=== PATIENT | female | born 2000 | race American Indian/Alaskan Native ===

== ENCOUNTER → 2020-06-01 | Emergency (ER) | payer OTHER ==
[~2020-06-01] VITALS: Ht 152.4 cm; Wt 63.5 kg
[~2020-06-01] MED LIST: BENADRYL25 MG PO; PSEUDOEPHEDRINE30 MG PO; SEIZURE MEDICATION
--- OUTSIDE RECORDS SUMMARY | ~2020-06-01 | XMS | Encounter Summary ---
Demographics + + + | Address | [address] | | | [place] [address] | + + + | Home Phone | | + + + | Preferred Language | Unknown | + + + | Marital Status | Single | + + + | Advent Affiliation | Unknown | + + + | Race | or | + + + | Ethnic Group | Not or | + + + Author + + + | Author | [facility] | + + + | Organization | [facility] | + + + | Address | Unknown | + + + | Phone | Unavailable | + + + Support + + + + + | Name | Relationship | Address | Phone | + + + + + | Drea Calderon | ECON | [address] | | | | | [place] | | | | | [address] | | + + + + + Care Team Providers + +------+ + | Care Box Press Operator Name | Role | Phone | + +------+ + | Angela Gallegos | PCP | | + +------+ + Encounter Details +--------+ + + + + | Date | Type | Department | Care Team | Description | +--------+ + + + + | 02/23/ | Hospital | Neurophysiology | | | | 2008 | Encounter | EEG at [facility] [address] | | | | | | [address] | | | | | | Pb | | | | | | [facility], | | | | | | 7th floor | | | | | | [place], [place] | | | | | | [address] | | | | | | [phone] | | | +--------+ + + + + Social History + +-------+ +--------+------+ | Tobacco Use | Types | Packs/Day | Years | Date | | | | | Used | | + +-------+ +--------+------+ | Never Assessed | | | | | + +-------+ +--------+------+ + + + | Sex Assigned at | Date Recorded | | | | + + + | Not on file | | + + + documented as of this encounter Miscellaneous Notes Jes - Tima Castillo - 02/23/2009 11:59 PM PDT documented in this encounter Plan of Treatment Not on filedocumented as of this encounter Procedures + +--------+ + + + | Procedure Name | Priori | Date/Time | Associated Diagnosis | Comments | | | ty | | | | + +--------+ + + + | EEG ROUTINE, PEDS | Routin | 02/23/2009 | | Results for this | | | e | 2:53 PM | | procedure are in the | | | | PDT | | results section. | + +--------+ + + + documented in this encounter Results EEG ROUTINE, PEDS (02/23/2009 2:53 PM PDT) + + + | Narrative | Performed At | + + + | Patient Name: Bethany Rodriguez Date of : 2000 Medical | | | Record Number: [id number] Date of Test: 02/23/2009 ROUTINE EEG | | | Introduction: This is a routine electroencephalogram performed on | | | a 9 y.o. with a clinical history of absence seizures. The standard | | | 10-20 system of electrode placement was used with one channel of EKG | | | monitoring. No anticonvulsant medications are listed. | | | Description of the Record: During periods of relaxed wakefulness, | | | there is a reactive posterior dominant rhythm which consists | | | predominantly of 9 Hz activity of moderate amplitude, with lower | | | amplitude faster frequencies present symmetrically in the anterior | | | head regions. During periods of drowsiness, there is decreased eye | | | blinking, decreased muscle artifact, and attenuation of the | | | background rhythm. Increased background amplitude and normal vertex | | | sharp waves characterize transition to stage I sleep. Stage II sleep | | | is characterized by symmetric sleep spindles and K-complexes. Slow | | | wave sleep is not recorded. The waking background is interrupted | | | by bursts of generalized 3-3.5Hz spike-wave discharges lasting 1-3 | | | seconds. Fragments of generalized and focal frontal spikes are also | | | seen. During sleep, bursts of irregularly generalized polyspikes are | | | seen fronto-centrally, distinct from normal sleep transients. | | | Hyperventilation is performed for 3 minutes, and elicits 2 clinical | | | absences lasting 6 and 7 seconds. Photic stimulation produces no | | | photoparoxysmal discharges or other abnormal responses. EKG shows | | | normal sinus rhythm throughout the recording. Impression: This | | | is an abnormal EEG for age recording wakefulness through stage II | | | sleep due to generalized 3-3.5Hz spike wave bursts, frontal spike | | | fragments, and hyperventilation-induced absence seizures. | | | Clinical Correlation: These findings would best support a primary | | | generalized mechanism of onset for this patient's seizures. Colten | | | MD R[facility] Clinical Neurophysiology Place of Service: | | | Outpatient Hospital Date of Service: 02/23/2009 Modifier: 26 | | | Suggested Level of Service: 44433- EEG Awake and Asleep Suggested | | | Diagnosis: 345.00-Epilepsy, Generalized, non-convuls. 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
--- OUTSIDE RECORDS SUMMARY | ~2020-06-01 | XMS | Clinical Summary ---
Demographics + + + | Address | [address] | | | [place] [address] | + + + | Home Phone | | + + + | Preferred Language | Unknown | + + + | Marital Status | Single | + + + | Judaism Affiliation | Unknown | + + + | Race | or | + + + | Ethnic Group | Not or | + + + Author + + + | Author | [facility] REVENUE LOCATIONS | + + + | Organization | NON REVENUE LOCATIONS | + + + | Address | Unknown | + + + | Phone | Unavailable | + + + Support + + + + + | Name | Relationship | Address | Phone | + + + + + | John Sorensen | ECON | [address] | | | | | [place] | | | | | [address] | | + + + + + Care Team Providers + +------+ + | Care Payment Collector Name | Role | Phone | + +------+ + | Hemanth Irving MD | PCP | | + +------+ + Source Comments ELÍAS is fully live on both [facility] and [facility] Allergies No Known Allergies Medications + + + +---------+------+------+-------+ | Medication | Sig | Dispensed | Refills | Star | End | Statu | | | | | | t | Date | s | | | | | | Date | | | + + + +---------+------+------+-------+ | ethosuximide 250 | 1 tab at night for | 60 Cap | 3 | 05/0 | | Activ | | mg Oral Capsule | one week, then 1 tab | | | 3/20 | | e | | | morning and night | | | 12 | | | + + + +---------+------+------+-------+ Active Problems + + + | Problem | Noted Date | + + + | Childhood absence epilepsy | 02/24/2009 | + + + Social History + +-------+ [...] on file | | + + + Last Filed Vital Signs + + + + + | Vital Sign | Reading | Time Taken | Comments | + + + + + | Blood Pressure | 109/61 | 01/03/2012 10:50 AM | | | | | PDT | | + + + + + | Pulse | 69 | 01/03/2012 10:50 AM | | | | | PDT | | + + + + + | Temperature | - | - | | + + + + + | Respiratory Rate | - | - | | + + + + + | Oxygen Saturation | - | - | | + + + + + | Inhaled Oxygen | - | - | | | Concentration | | | | + + + + + | Weight | 47.5 kg (104 lb 11.5 | 01/03/2012 10:50 AM | | | | oz) | PDT | | + + + + + | Height | 145 cm (4' 9.09") | 01/03/2012 10:50 AM | | | | | PDT | | + + + + + | Body Mass Index | 22.59 | 01/03/2012 10:50 AM | | | | | PDT | | + + + + + Plan of Treatment + + +-------+ + | Health Maintenance | Due Date | Last | Comments | | | | Done | | + + +-------+ + | Influenza (Flu) | | | | | vaccination (#1) | 0 | | | + + +-------+ + | Pneumococcal | Aged Out | | No longer eligible based on patient's age | | vaccination | | | to complete this topic | + + +-------+ + Results Not on filefrom Last 3 Months Insurance + +--------+ +--------+ + +--------+ | Payer | Benefi | Subscriber | Effect | Phone | Address | Type | | | t Plan | ID | anthony | | | | | | / | | Dates | | | | | | Group | | | | | | + +--------+ +--------+ + +--------+ | [place] | OHP | [id number] | | [phone] | [address] | [address] | | | PLUS | | [phone] | id | | | OPEN | | esent | | [place], [place] | | | | CARD | | | | [phone] | | + +--------+ +--------+ + +--------+ | FORMERLY [facility] | | [id number] | Effect | | | Agency | | SERVICE | | | anthony | | | | | | HEALTH | | for | | | | | | | | all | | | | | | SERVIC | | dates | | | | | | E | | | | | | + +--------+ +--------+ + +--------+ + +--------+ +--------+ + + | Guarantor Name | Accoun | Relation to | Date | Phone | Billing Address | | | t Type | Patient | of | | | | | | | | | | + +--------+ +--------+ + + | JOHN SORENSEN | Person | Parent | [birth year] | [address] | | | chapo/Richie | | 1975 | [phone] | [place] [address] | | | larissa | | | 0 (Home) | | + +--------+ +--------+ + + | Bethany Rodriguez | Agency | Self | [birth year] | [address] [address] [facility] | | | | | 1999 | [phone] | [place] [address] | | | | | | 0 ([place]) | | + +--------+ +--------+ + +
--- OUTSIDE RECORDS SUMMARY | ~2020-06-01 | XMS | Encounter Summary ---
Demographics + + + | Address | [address] | | | [place] [address] | + + + | Home Phone | | + + + | Preferred Language | Unknown | + + + | Marital Status | Single | + + + | Amish Affiliation | Unknown | + + + | Race | or | + + + | Ethnic Group | Not or | + + + Author + + + | Author | [facility] | + + + | Organization | [facility] | + + + | Address | Unknown | + + + | Phone | Unavailable | + + + Support + + + + + | Name | Relationship | Address | Phone | + + + + + | Drea Calderon | ECON | [address] | | | | | [place] | | | | | [address] | | + + + + + Care Team Providers + +------+ + | Care Maternity Floor Supervisor Name | Role | Phone | + +------+ + | Benji Denny MD | PCP | | + +------+ + Encounter Details +--------+ + + + + | Date | Type | Department | Care Team | Description | +--------+ + + + + | 12/15/ | Document-Sc | Pediatric | Tee Sultana MD | | | 2010 | anned | Neurology at | | | | | | Pb | | | | | | [facility] | | | | | | [address] | | | | | | Pb | | | | | | [facility], | | | | | | 7th floor | | | | | | [place], [place] | | | | | | [address] | | | | | | [phone] | | | +--------+ + + + [...] documented as of this encounter Miscellaneous Notes Scan - Other, Faculty - 12/15/2010 12:00 AM PDT documented in this encou nter Plan of Treatment Not on filedocumented as of this encounter Visit Diagnoses Not on filedocumented in this encounter"
--- OUTSIDE RECORDS SUMMARY | ~2020-06-01 | XMS | Encounter Summary ---
Demographics + + + | Address | [address] | | | [place] [address] | + + + | Home Phone | | + + + | Preferred Language | Unknown | + + + | Marital Status | Single | + + + | Sabianist Affiliation | Unknown | + + + | Race | or | + + + | Ethnic Group | Not or | + + + Author + + + | Author | [facility] | + + + | Organization | [facility] | + + + | Address | Unknown | + + + | Phone | Unavailable | + + + Support + + + + + | Name | Relationship | Address | Phone | + + + + + | Drea Calderon | ECON | [address] | | | | | [place] | | | | | [address] | | + + + + + Care Team Providers + +------+ + | Care Transport Truck Driver Name | Role | Phone | + +------+ + | Hemanth Irving MD | PCP | | + +------+ + Encounter Details +--------+ + + + + | Date | Type | Department | Care Team | Description | +--------+ + + + + | 08/08/ | Ancillary | Registration [id number] | | | | 2005 | Registratio | [address] | | | | | [address] | [address] Mailcode: [address] | | | | | | [place], [place] | | | | | | [address] | | | | | | [phone] | | | +--------+ + + + [...] + + documented as of this encounter Plan of Treatment Not on filedocumented as of this encounter Visit Diagnoses Not on filedocumented in this encounter"
--- OUTSIDE RECORDS SUMMARY | ~2020-06-01 | XMS | Encounter Summary ---
Demographics + + + | Address | [address] | | | [place] [address] | + + + | Home Phone | | + + + | Preferred Language | Unknown | + + + | Marital Status | Single | + + + | Yarsanism Affiliation | Unknown | + + + | Race | or | + + + | Ethnic Group | Not or | + + + Author + + + | Author | [facility] | + + + | Organization | [facility] | + + + | Address | Unknown | + + + | Phone | Unavailable | + + + Support + + + + + | Name | Relationship | Address | Phone | + + + + + | Drea Calderon | ECON | [address] | | | | | [place] | | | | | [address] | | + + + + + Care Team Providers + +------+ + | Care Elevator Constructor Helper Name | Role | Phone | + +------+ + | Hemanth Irving MD | PCP | | + +------+ + Encounter Details +--------+ + + + + | Date | Type | Department | Care Team | Description | +--------+ + + + + | 08/15/ | Ancillary | Registration [id number] | [address], | | | 2005 | Registratio | [facility] [address] | [address] [facility] | | | | n | [address] Mail[address]: [id number] | [address] | | | | | [place], [place] | [place], [place] | | | | | [address] | [address] | | | | | [phone] | [phone] | | | | | | | | +--------+ + + + [...]
--- OUTSIDE RECORDS SUMMARY | ~2020-06-01 | XMS | Encounter Summary ---
Demographics + + + | Address | [address] | | | [place] [address] | + + + | Home Phone | | + + + | Preferred Language | Unknown | + + + | Marital Status | Single | + + + | Protestant Affiliation | Unknown | + + + | Race | or | + + + | Ethnic Group | Not or | + + + Author + + + | Author | [facility] | + + + | Organization | [facility] | + + + | Address | Unknown | + + + | Phone | Unavailable | + + + Support + + + + + | Name | Relationship | Address | Phone | + + + + + | Drae Calderon | ECON | [address] | | | | | [place] | | | | | [address] | | + + + + + Care Team Providers + +------+ + | Care Power Truck Driver Name | Role | Phone | + +------+ + | Angela Gallegos | PCP | | + +------+ + Reason for Visit + + + | Reason | Comments | + + + | New patient | | | consultation | | + + + Consultation (Routine) +--------+--------+ + + + + | Status | Reason | Specialty | Diagnoses / | Referred By | Referred To | | | | | Procedures | Contact | Contact | +--------+--------+ + + + + | Closed | | Pediatric | Diagnoses | Non-[facility] | Ped | | | | Neurology | Generalized | Epic Dept | Neurology Dch | | | | | | | [address] | | | | | nonconvulsiv | | [address] | | | | | e epilepsy | | [place] | | | | | without | | Children's | | | | | mention of | | [facility] | | | | | intractable | | floor | | | | | epilepsy | | [place], [place] | | | | | | | [address] | | | | | | | Phone: | | | | | | | [phone] | | | | | | | Fax: | | | | | | | [phone] | +--------+--------+ + + + + Encounter Details +--------+---------+ + + + | Date | Type | Department | Care Team | Description | +--------+---------+ + + + | 02/24/ | Office | Pediatric | Tee Sultana MD | Childhood Absence | | 2008 | Visit | Neurology at | | Epilepsy (HCC) | | | | Pb | | (Primary Dx) | | | | [facility] | | | | | | [address] | | | | | | Pb | | | | | | [facility], | | | | | | [address] [place] [address] | | | | | | [place], [place] | | | | | | [address] | | | | | | [phone] | | | +--------+---------+ + + + Social History + +-------+ [...] + + documented as of this encounter Last Filed Vital Signs + + + + + | Vital Sign | Reading | Time Taken | Comments | + + + + + | Blood Pressure | - | - | | + + + + + | Pulse | - | - | | + [...] + + + + | Weight | 30.8 kg (67 lb 14.4 | 02/24/2009 11:21 AM | | | | oz) | PDT | | + + + + + | Height | 124.2 cm (4' 0.9") | 02/24/2009 11:21 AM | | | | | PDT | | + + + + + | Body Mass Index | 19.97 | 02/24/2009 11:21 AM | | | | | PDT | | + + + + + documented in this encounter Progress Notes Tee Sultana MD - 02/25/2009 6:57 PM PDTPediatric Neurology Attending Outpatient Note I am familiar with Bethany Rodriguez's medical history and the current active problems for wh ich she is being seen today. I have met with the family and have reviewed the history. I h ave examined the patient and I have discussed my findings with Dr. Ojeda. I have reviewed, edited and entered my findings into those of Dr. Ojeda and I agree with the documentation. Together Dr. Ojeda and I extensively reviewed the assessment and plan with the family as out lined in the note. Impression: 1. Absence Epilepsy ([place]) The total time spent with the patient and family in clinic today was 60 minutes with greate r than 50% with patient and family counseling and coordinating care. Tee Sultana MD Professor of Pediatrics and Neurology [facility] Professor of Pediatric Neurology [facility] Chase Lopez Md - 02/24/2009 3:49 PM PDTPEDIATRIC NEUROLOGY CLINIC CONSULTATION NOT E PRESENT HISTORY: Bethany Rodriguez is a 9 year old girl who presents for neurological consul tation regarding absence seizures diagnosed several years ago, but never treated with medica tion. She first developed staring spells at about age 2. At age 4 or 5 she had an EEG and was di agnosed with childhood absence epilepsy, though she never saw a neurologist. Her mother was hesitant to start medications and instead found an art therapy program. This helped greatl y and in fact she seemed to be completely seizure-free for a few years until the past year o r so, when the seizures returned. All the events are the same. She suddenly develops some minor eyelid fluttering and her ey es look up a bit. She has a behavioral arrest. The entire episode lasts less than 10 secon ds, without any involuntary limb movements. She returns immediately back to her usual menta tion. Her mother sees about 4 a day between 4pm - 8pm. Teachers at school have seen very few. MEDICATIONS: none ALLERGIES: No known drug allergies PAST MEDICAL HISTORY: Childhood absence epilepsy FAMILY HISTORY: None SOCIAL HISTORY: She lives with her mother in [place]. She just finished 4th grade. She did fair in school this year. REVIEW OF SYSTEMS: General: No constitutional symptoms of fatigue, no fevers Skin: Clear, no rashes, hypo- or hyperpigmented spots, no birthmarks ENT: No rhinitis, allergies. Bethany Blackwell has had a few ear infections in [place] Respiratory: No chronic cough, no wheezing, no shortness of breath Gastrointestinal: No abdominal or flank pain, no diarrhea Genitourinary: No UTI, no dysuria or hematuria Musculoskeletal: No bony deformities or contractures Neurological and Psychological: See PHI Hematologic: No bruising, bleeding, anemia All other systems were reviewed and are negative. EXAMINATION: VITALS - Ht 124.2 cm (4' 0.9") | Wt 30.8 kg (67 lb 14.4 oz) GENERAL - This is a healthy, cooperative, smiling girl. Undilated fundoscopic exam: normal . Eyelid exam: normal. Cardiovascular exam: Rate, rhythm, regular, no murmur, gallop or br uits. No peripheral edema. MENTAL STATUS - Alert, attentive, and oriented x4. Short-term memory intact for current e vents. Language is appropriate for confrontational naming, following 3-step commands, readi ng, and writing. Calculation is intact. CRANIAL NERVES - Near visual acuity is grossly normal with correction. Peripheral visual aviles are intact to confrontation OU. Pupils are isocoric and equally reactive. Horizonta l and vertical saccades are normal without pathologic nystagmus. Facial sensation is intact and symmetric for touch and cold. Facial movement is full and symmetric without nasolabial flattening and air can be held in cheeks. Hearing is intact to finger rub bilaterally. P alate elevation is symmetric. Shoulder shrug strength is full and symmetric. Tongue protru diamond is midline. MOTOR - There is normal tone and bulk without involuntary movements. Confrontational stre ngth exam: deltoids 5, biceps 5, triceps 5, wrist extension 5, finger extension 5, finger fl exion 5, finger abduction 5; hip flexion 5, knee extension 5, knee flexion 5, ankle dorsifle xion 5, ankle plantarflexion 5. REFLEXES - Biceps 2+, brachioradialis 2+, triceps 2+, knee 2+, and ankle jerks 2+. Planta r responses are flexor bilaterally. SENSORY - Sensation of pinprick and temperature is intact for all extremities. Sensation of vibration is intact at the toes bilaterally and at the fingers bilaterally. COORDINATION - Cjmoze-zbfu-pnkfxf and heel-sinha tests are normal bilaterally. There is no dysdiadochokinesia, overshoot, or intention tremor. GAIT/STATION - Station is normal. Gait is normal including initiation, speed, stride williams th, and stability. After about 70 seconds of hyperventilation, she developed an absence seizure. Her eyelids fluttered, eyes looked slightly up, and there was a brief behavioral arrest lasting ~3 secon ds. EEG: Routine EEG performed yesterday at [facility] shows intermittent bursts of generalized spike-wave activity at 3-3.5 Hz. One occurred during hyperventilation and had clinical correlate carmela lar to seizure description. DIAGNOSIS: 1. Childhood absence epilepsy [place] certainly has an absence epilepsy based on clinical and EEG findings. There are some m inor atypical findings, however - the generalized EEG spike-wave activity is slightly faster than in classic childhood absence epilepsy. We are confident that she will respond favorab ly to ethosuximide, though if she fails an appropriate trial of that then valproate, lamotri gine, or levetiracetam should be considered. RECOMMENDATIONS/PLAN: - ethosuximide 250 mg bid (~10mg/kg/d) - goal is to completely suppress seizures - mother will call in 2 weeks if seizures are not suppressed at which point dose should be increased as tolerated I have discussed this case with Tee Sultana MD, who personally interviewed and examined the patient and participated in the formulation of the plan. Chase Ojeda MD Neurology Resident documented in this encou nter Miscellaneous Notes Scan - Tima Castillo - 03/15/2009 2:53 PM PDT can - Jon Castillo - 03/03/2009 8:13 AM PDT documented in t his encounter Plan of Treatment Not on filedocumented as of this encounter Visit Diagnoses + + | Diagnosis | + + | Childhood absence epilepsy (HCC) - Primary Generalized nonconvulsive epilepsy without | | mention of intractable epilepsy | + + documented in this encounter
--- OUTSIDE RECORDS SUMMARY | ~2020-06-01 | XMS | Encounter Summary ---
Demographics + + + | Address | [address] | | | [place] [address] | + + + | Home Phone | | + + + | Preferred Language | Unknown | + + + | Marital Status | Single | + + + | Congregation Affiliation | Unknown | + + + | Race | or | + + + | Ethnic Group | Not or | + + + Author + + + | Author | [facility] | + + + | Organization | [facility] | + + + | Address | Unknown | + + + | Phone | Unavailable | + + + Support + + + + + | Name | Relationship | Address | Phone | + + + + + | Drea Calderon | ECON | [address] | | | | | [place] | | | | | [address] | | + + + + + Care Team Providers + +------+ + | Care Geodetic Surveyor Name | Role | Phone | + +------+ + | Angela Gallegos | PCP | | + +------+ + Reason for Visit + +--------+ + | Reason | Onset | Comments | | | Date | | + +--------+ + | Refill Request | 05/13/ | Ethosuximide | | | 2008 | | + +--------+ + Encounter Details +--------+--------+ + + + | Date | Type | Department | Care Team | Description | +--------+--------+ + + + | 05/13/ | Refill | Pediatric | Tee Sultana MD | Refill Request | | 2008 | | Neurology at | | (Ethosuximide) | | | | [facility] | | | | | | [facility] | | | | | | [address] | | | | | | Pb | | | | | | [facility], | | | | | | [address] [place] [address] | | | | | | [place], [place] | | | | | | [address] | | | | | | [phone] | | | +--------+--------+ + + + Social History + +-------+ [...]
--- OUTSIDE RECORDS SUMMARY | ~2020-06-01 | XMS | Encounter Summary ---
Demographics + + + | Address | [address] | | | [place] [address] | + + + | Home Phone | | + + + | Preferred Language | Unknown | + + + | Marital Status | Single | + + + | Mosque Affiliation | Unknown | + + + | Race | or | + + + | Ethnic Group | Not or | + + + Author + + + | Author | [facility] | + + + | Organization | [facility] | + + + | Address | Unknown | + + + | Phone | Unavailable | + + + Support + + + + + | Name | Relationship | Address | Phone | + + + + + | Drea Calderon | ECON | [address] | | | | | [place] | | | | | [address] | | + + + + + Care Team Providers + +------+ + | Care Gang Supervisor Name | Role | Phone | + +------+ + | Hemanth Irving MD | PCP | | + +------+ + Reason for Referral Diagnostic Testing (Routine) +--------+--------+ + + + + | Status | Reason | Specialty | Diagnoses / | Referred By | Referred To | | | | | Procedures | Contact | Contact | +--------+--------+ + + + + | Closed | | Clinical | Diagnoses | Malgorzata | Cnl Eeg Dch | | | | Neurophysiolo | Childhood | Roberto, | [address] | | | | gy | absence | Marixa T, | [address] | | | | | epilepsy | PNP [address] | [place] | | | | | ([facility]) | [place] | Children's | | | | | Procedures | [address] | [facility] | | | | | EEG SLEEP | [place], [place] | floor | | | | | DEPRIVED, | [address] | [place], [place] | | | | | PEDS | | [address] | | | | | | | Phone: | | | | | | | [phone] | | | | | | | Fax: | | | | | | | [phone] | +--------+--------+ + + + + Reason for Visit + + + | Reason | Comments | + + + | Seizure disorder | | + + + Office Visit - E/M Services (Routine) +--------+--------+ + + + + | Status | Reason | Specialty | Diagnoses / | Referred By | Referred To | | | | | Procedures | Contact | Contact | +--------+--------+ + + + + | Closed | | Pediatric | | Maria Fernanda, | Ped | | | | Neurology | | Hemanth | Neurology Tee | | | | | | MD [address] | [address] | | | | | | [address] | [address] | | | | | | [place], | [facility] | | | | | | [place] [address] | Children's | | | | | | Phone: | [address] | | | | | | [phone] | floor | | | | | | Fax: | [place], [place] | | | | | | [phone] | [address] | | | | | | | Phone: | | | | | | | [phone] | | | | | | | Fax: | | | | | | | [phone] | +--------+--------+ + + + + Encounter Details +--------+---------+ + + + | Date | Type | Department | Care Team | Description | +--------+---------+ + + + | 01/02/ | Office | Pediatric | Malgorzata Mejia, | Childhood absence | | 2011 | Visit | Neurology at | TANVI Mack | epilepsy (HCC) | | | | Pb | | (Primary Dx) | | | | [facility] | | | | | | [address] | | | | | | Pb | | | | | | [facility], | | | | | | [address] [place] [address] | | | | | | [place], [place] | | | | | | [address] | | | | | | [phone] | | | +--------+---------+ + + + [...] + + + documented in this encounter Patient Instructions Patient Instructions Marixa Yeh PNP - 01/03/2012 11:21 AM PDTRestart ethosux imide. Take one 250 mg tablet every night for one week, then increase to one tablet twice a day. Call with an update in one month Schedule sleep deprived EEG at your convenience. Schedule follow up with me in April. May see me or Dr. Sultana. documented in this encounter Progress Notes Marixa Yeh PNP - 01/03/2012 11:03 AM PDTFormatting of this note might be dif ferent from the original. PEDIATRIC NEUROLOGY FOLLOW-UP Name: Bethany Rodriguez : 2000 DOS: 01/03/2012 Translation Services Used: none HPI: Bethany Rodriguez is a 11 year old female seen today for routine follow up in the [facility] Neurology clinic. She comes to clinic today with her grandmother. Bethany has a diagnosis of Patient Active Problem List Diagnoses Childhood Absence Epilepsy She was last seen in clinic on 02/24/[address] Brandyn Sultana. At that time, she was started on ethosuximide for absence seizures. Bethany was lost to follow up. Since her last visit: Was taking ethosuximide twice a day. On medicine was lethargic and just sitting around. W anted to switch to tabs but prescription not received and mom felt like the side effects wer e worse than the seizures so didn't restart it. Spaces out and looks up for a few seconds. More when under stress, several times a week an d may have more than one in a day. Seems like they decreased since starting track. Was "se izure free" while getting art therapy. Does have times where they occur more frequently. N ot aware of what's happened while she's in a spell and picks up right where she left off. M om sees Bethany "try to snap out of them". She is aware of when they happen. Different spell lasted 12 seconds, arm shaking, looked dizzy, witnessed by cousin, occurred a couple months ago. First time and not since. Overall health has been good. No new hospitalizations Okay with restarting medicine as long as it doesn't make her as sleepy. Past medical history: Unchanged since her last office visit. No Known Allergies Recent lab studies: none Recent diagnostic studies: none. Note Dr. Sultana expressed some concern about some EEG findi ngs being of faster rhythm than was typical for absence seizures in 2008 Current medications: No current outpatient prescriptions on file. Review of Systems: Bethany has been in general good health since last being seen in clinic. See HPI for pertinent positives. All other systems reviewed and normal or at baseline. General Examination: Physical Exam: Vitals: Ht 145 cm (4' 9.09") (5 %ile), Wt 47.5 kg (104 lbs 11.5 oz) (59 %ile), Weight for age(%) 58.87%, BMI for age(%) 85.65%, Length for age(%) 4.93%, BP 109/61, Pulse 69, BMI 22.59 kg/(m^2). Systemic examination is normal. Skin is clear and extremities have a full range of motion with no bony deformities or contractures. On neurologic testing, her mental status reveals an awake, alert, cooperative young lady eric hernadez has appropriate cognitive and language function for age. Memory is intact with age appro priate attention span. Cranial nerves II-XII are intact. Fundoscopic examination is normal . Motor examination reveals normal bulk, tone, and strength throughout. There are no abnor mal movements. Sensory and cerebellar testing are normal. Reflexes are symmetric, and her toes are flexor bilaterally. Gait is normal. Impression: Bethany Rodriguez is a 11 y.o. female with a history of absence seizures with EEG correlate. By report, EEG also had some faster rhythms without clinical correlation. Was s tarted on ethosuximide with good seizure control but sedation side effect. Medication stopp ed by mother due to concern about side effects when there was confusion over prescription ch kodak to tablets. Since then, continues to have spells previously identified as absence seiz ures. Of note is family report of decrease in spells when involved in Art Therapy and Track . Single incident of possible focal onset seizure reported by family member several months ago but none since. Spent a great deal of time discussing medication options and need for c ompliance as well as report of side effects. Ethosuximide and lamotrigine discussed at [facility]. All questions answered. Diagnosis(es): 345.00FA Childhood absence epilepsy Recommendations: Restart ethosuximide. Take one 250 mg tablet every night for one week, then increase to on e tablet twice a day. Call with an update in one month Schedule sleep deprived EEG at your convenience. Schedule follow up with me in April. May see me or Dr. Sultana. Follow up with PCP for routine pediatric care and care coordination. Potential side effects were reviewed with Bethany's grandmother. Follow up in 3 months. Instructed Bethany's grandmother to call earlier if there are any quest ions or concerns. Bethany's grandmother verbalized understanding and agreement with today's yasmine n of care. It was a pleasure to meet with Bethany and her grandmother today. I spent a total o f 30 minutes with them, more than 50% of that time was spent counseling the patient regardin g treatment options and plan of care. A copy of today's visit will be sent to her PCP, Donnie Irving Md, MD. 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
== END ==
LOC: ED 18:00
DX: H61.22 Impacted cerumen, left ear (principal); Z87.891 Personal history of nicotine dependence
CPT/HCPCS: 69209; 99282-25

== ENCOUNTER 2022-12-03 15:45 | Emergency (ER) | payer OTHER ==
[~2022-12-03] VITALS: Ht 152.4 cm; Wt 63.5 kg
--- NOTE | 2022-12-04 14:03 | EKG ---
[facility] [address] [place] [address] Signed Normal sinus rhythm Low voltage QRS Inferior infarct , age undetermined Abnormal ECG No previous ECGs available Confirmed by LEAH ROBISON MD ([id number]) on 12/04/2022 2:03:23 PM Electronically Signed By: LEAH ROBISON MD 12/04/221402 PATIENT NAME: WALLACE WATSON Electrocardiogram DATE OF : [birth year] PHYSICIAN: LEAH ROBISON MD REPORT #: [id number] REPORT IS CONFIDENTIAL AND NOT TO BE RELEASED WITHOUT AUTHORIZATION
== END 2022-12-03 17:40 | disposition home or self-care (01) ==
LOC: ED 15:45
DX: R07.2 Precordial pain (principal); Z87.891 Personal history of nicotine dependence
CPT/HCPCS: 36415; 71046; 80053; 84484; 84703; 85025; 93005; 93010; 99285-25